=== PATIENT | female | born 1945 | race Caucasian/White ===

== ENCOUNTER → 2016-11-19 | Day surgery (SDC) | payer MEDICARE, OTHER ==
[~2016-11-19] VITALS: Ht 162.5 cm; Wt 111.1 kg
[~2016-11-19] MED LIST: ALPRAZOLAM0.5 M3 PO; ATENOLOL25 MG PO; CYCLOBENZAPRINE5 M3 PO; DESLORATADINE PO; GOOD NEIGHBOR150 MG PO; GORDO-VITE E15 GM PO; LEVOTHYROXINE125 MCG PO; MIRTAZAPINE15 M2 PO; NEURONTIN300 MG PO; TRAMADOL HCL50 MG PO; TRIAMTERENE-HC1 EACH PO
--- NOTE | ~2016-11-19 | O ---
[place], [place] OPERATIVE NOTE NAME: CHANDU HERR [facility] #: [id number] UNIT #: [id number] ROOM: DOCTOR: MIGUEL LAI MD BIRTHDATE: [birth year] DOS: 11/19/2016 PREOPERATIVE DIAGNOSIS: Cataract, left eye. POSTOPERATIVE DIAGNOSIS: Cataract, left eye. OPERATION: Extracapsular cataract extraction by phacoemulsification with posterior chamber intraocular lens implantation, left eye. ANESTHESIA: Monitored standby. OPERATIVE FINDINGS AND PROCEDURE: 2% Xylocaine topical anesthetic gel was applied to the eye in the preop area. The patient was taken to the operating room and prepped and draped in the standard fashion for sterile intraocular surgery. A time out procedure was performed verifying correct patient, correct site and corrects lens with Victor M Lai M.D. The operating microscope was swung into position and the lid speculum was inserted. Using a Luci paracentesis blade, a paracentesis was made through clear cornea. Viscoelastic was used to fill the anterior chamber. Using a metal keratome a 2.4 mm self-sealing clear corneal cataract incision was made temporally at the limbus. Using a pre-bent 25 gauge cystotome needle, a standard continuous curvilinear capsulorrhexis was performed. The anterior capsule was removed with forceps. The lens nucleus was hydrodissected and phacoemulsified in the posterior chamber. Cortical material was removed with the irrigation aspiration hand piece and the posterior capsule was then polished with a curet under irrigation. The posterior chamber and capsular bag were filled with viscoelastic. A posterior chamber intraocular lens manufactured by: [employer], Model #[id number], and 20.5 diopters in strength were then inserted into the posterior chamber and within the capsular bag using the lens cartridge and injector system. Viscoelastic was removed using the irrigation aspiration handpiece. The anterior chamber was filled with balanced salt solution through the paracentesis. Both the paracentesis site and cataract incisions were hydrated with BSS and verified to be water-tight and self-sealing. Cefuroxime 1 mg/0.1 mL was injected into the anterior chamber through the paracentesis site. The incision checked to be water-tight using a Weck-Monica sponge. The integrity of the cataract wound and ocular tension were checked. Lid speculum and drapes were removed. The patient was transferred from the operating room to the recovery room in satisfactory condition. [place], [place] OPERATIVE NOTE NAME: CHANDU HERR UNIT #: [id number] ROOM: DOCTOR: MIGUEL LAI MD BIRTHDATE: [birth year] MIGUEL LAI MD CM:OPRECORD:OPERATIVE NOTE [id number] MIGUEL LAI MD 11/19/16 1313 interface
[2016-11-19 11:15] VITALS: BP 136/79
[2016-11-19 12:53] VITALS: BP 118/56
[2016-11-19 13:08] VITALS: BP 115/52
[2016-11-19 13:23] VITALS: BP 128/62
== END | disposition home or self-care (01) ==
LOC: SDC 11-14 12:30
DX: H26.9 Unspecified cataract (principal); I10 Essential (primary) hypertension; E03.9 Hypothyroidism, unspecified; F32.9 Major depressive disorder, single episode, unspecified; Z90.710 Acquired absence of both cervix and uterus; Z98.890 Other specified postprocedural states; Z87.891 Personal history of nicotine dependence; Z79.899 Other long term (current) drug therapy; Z88.1 Allergy status to other antibiotic agents; M19.90 Unspecified osteoarthritis, unspecified site; E66.01 Morbid (severe) obesity due to excess calories; Z68.41 Body mass index [BMI] 40.0-44.9, adult

== ENCOUNTER → 2016-12-24 | Day surgery (SDC) | payer MEDICARE, OTHER ==
[~2016-12-24] VITALS: Ht 162.5 cm; Wt 111.1 kg
[~2016-12-24] MED LIST changes: +FISH OIL CONC1000 M2 PO; +MULTIPLE VITAM1 EACH PO; +VITAMIN C500 M4 PO; +VITAMIN D31000 UNI1 PO; +VITAMIN E400 UNI3 PO
--- NOTE | ~2016-12-24 | O ---
[place], [place] OPERATIVE NOTE [id number] UN[facility] #: [id number] ROOM: DOCTOR: MIGUEL LAI MD BIRTHDATE: [birth year] DOS: 12/24/2016 PREOPERATIVE DIAGNOSIS: Cataract, right eye. POSTOPERATIVE DIAGNOSIS: Cataract, right eye. OPERATION: Extracapsular cataract extraction by phacoemulsification with posterior chamber intraocular lens implantation, right eye. ANESTHESIA: Monitored standby. OPERATIVE FINDINGS AND PROCEDURE: 2% Xylocaine topical anesthetic gel was applied to the eye in the preop area. The patient was taken to the operating room and prepped and draped in the standard fashion for sterile intraocular surgery. A time out procedure was performed verifying correct patient, correct site and corrects lens with Victor M Lai M.D. The operating microscope was swung into position and the lid speculum was inserted. Using a Luci paracentesis blade, a paracentesis was made through clear cornea. Viscoelastic was used to fill the anterior chamber. Using a metal keratome a 2.4 mm self-sealing clear corneal cataract incision was made temporally at the limbus. Using a pre-bent 25 gauge cystotome needle, a standard continuous curvilinear capsulorrhexis was performed. The anterior capsule was removed with forceps. The lens nucleus was hydrodissected and phacoemulsified in the posterior chamber. Cortical material was removed with the irrigation aspiration hand piece and the posterior capsule was then polished with a curet under irrigation. The posterior chamber and capsular bag were filled with viscoelastic. A posterior chamber intraocular lens manufactured by: [employer], Model #[id number], and 20.0 diopters in strength were then inserted into the posterior chamber and within the capsular bag using the lens cartridge and injector system. Viscoelastic was removed using the irrigation aspiration handpiece. The anterior chamber was filled with balanced salt solution through the paracentesis. Both the paracentesis site and cataract incisions were hydrated with BSS and verified to be water-tight and self-sealing. Cefuroxime 1 mg/0.1 mL was injected into the anterior chamber through the paracentesis site. The incision checked to be water-tight using a Weck-Monica sponge. The integrity of the cataract wound and ocular tension were checked. Lid speculum and drapes were removed. The patient was transferred from the operating room to the recovery room in satisfactory condition. [place], [place] OPERATIVE NOTE NAME: CHANDU HERR UNIT #: [id number] ROOM: DOCTOR: MIGEUL LAI MD BIRTHDATE: [birth year] MIGUEL LAI MD CM:OPRECORD:OPERATIVE NOTE [id number] MIGUEL LAI MD 12/24/16 1449 interface
[2016-12-24 09:51] VITALS: BP 136/60
[2016-12-24 11:08] VITALS: BP 121/57
[2016-12-24 11:25] VITALS: BP 129/56
[2016-12-24 11:39] VITALS: BP 132/59
== END | disposition home or self-care (01) ==
LOC: SDC 12-19 12:30
DX: H26.9 Unspecified cataract (principal); I10 Essential (primary) hypertension; E03.9 Hypothyroidism, unspecified; F32.9 Major depressive disorder, single episode, unspecified; Z90.710 Acquired absence of both cervix and uterus; Z87.891 Personal history of nicotine dependence; Z88.1 Allergy status to other antibiotic agents

== ENCOUNTER 2018-11-08 15:31 | Emergency (ER) | payer MEDICARE, OTHER ==
[~2018-11-08] VITALS: Wt 113.4 kg
--- NOTE | ~2018-11-08 | EKG ---
[place], [place] ELECTROCARDIOGRAM REPORT NAME: CHANDU HERR UNIT #: [id number] ROOM: DOCTOR: MERLYN DRAFT REPORT BIRTHDATE: [birth year] [facility] Test Date: 2018-11-08 Test Time: 16:17:13 Pat Name: CHANDU HERR Department: Room: Gender: F Medical Orderly: Luda Luna : 1945 Requested By: JAMES STONE Order Number: [id number] Reading MD: Pankaj Wilson MD Measurements Intervals [place] Rate: 66 P: -2 WV: 146 QRS: 67 QRSD: 113 T: 44 QT: 453 QTc: 475 Interpretive Statements Sinus rhythm Borderline intraventricular conduction delay Low voltage, precordial leads No previous ECG available for comparison Electronically Signed On 11-10-2018 4:09:39 PDT by Pankaj Wilson MD CM:EKGRPT:ELECTROCARDIOGRAM REPORT [id number] JAMES VALLEJO DRAFT REPORT JAMES STONE DO
[2018-11-08 16:29] LABS: BASO # 0.1 10*3/uL (0.0-0.1); BASO % 0.5 % (0.0-1.0); EOS # 0.2 10*3/uL (0.0-0.4); EOS % 0.9 % (1.0-4.0); HEMATOCRIT 43.5 % (37.0-47.0); LYMPH # 1.5 10*3/uL (1.3-4.4); LYMPH % 9.2 % (27.0-41.0); MEAN CELL VOLUME 94.2 fl (81.0-99.0); MEAN CORPUSCULAR HGB 30.3 pg (27.0-31.0); MEAN CORPUSCULAR HGB CONC 32.2 g/dl (33.0-37.0); MEAN PLATELET VOLUME 9.9 fl (9.6-12.3); MONO % 6.2 % (3.0-9.0); NEUT # 13.7 10*3/uL (2.3-7.9); NEUT % 82.8 % (47.0-73.0); PLATELET COUNT AUTOMATED 311 10*3/uL (130-400); RED BLOOD COUNT 4.62 10*6/uL (4.10-5.10); RED CELL DISTRI WIDTH 12.9 % (0-14.5); WHITE BLOOD COUNT 16.5 10*3/uL (4.8-10.8)
[2018-11-08 16:45] LABS: ALBUMIN 3.8 gm/dl (3.1-4.5); ALKALINE PHOSPHATASE 54 U/L (45-117); BUN 25 mg/dl (7-24); CHLORIDE 109 mmol/L (98-107); CPK 321 U/L (26-192); CREATININE 1.31 mg/dL (0.55-1.02); LIPASE 64 U/L (73-393); SGOT/AST 17 IU/L (3-35); SGPT/ALT 19 U/L (12-78); SODIUM 141 mmol/L (136-145); TOTAL PROTEIN 6.9 gm/dL (6.4-8.2); TROPONIN I < 0.015 ng/ml (<0.045)
[2018-11-08 16:46] LABS: ACT PARTIAL THROMBO TIME 25.2 SECONDS (20.0-32.1)
== END 2018-11-08 19:43 | disposition short-term general hospital (02) ==
LOC: ED 15:31
PROVIDERS: Emergency Medicine
DX: I63.9 Cerebral infarction, unspecified (principal); Z88.2 Allergy status to sulfonamides; Z79.899 Other long term (current) drug therapy

== ENCOUNTER 2019-08-09 12:39 | Inpatient (IN) | payer MEDICARE, OTHER ==
[~2019-08-09] VITALS: Ht 162.5 cm; Wt 118.0 kg
[2019-08-09] VITALS (38 sets, daily range): BP systolic 56–128; BP diastolic 0–98
[2019-08-09 13:02] LABS: HEMATOCRIT 40.9 % (37.0-47.0); MEAN CELL VOLUME 93.8 fl (81.0-99.0); MEAN CORPUSCULAR HGB 30.5 pg (27.0-31.0); MEAN CORPUSCULAR HGB CONC 32.5 g/dl (33.0-37.0); MEAN PLATELET VOLUME 11.2 fl (9.6-12.3); PLATELET COUNT AUTOMATED 191 10*3/uL (130-400); RED BLOOD COUNT 4.36 10*6/uL (4.10-5.10); WHITE BLOOD COUNT 36.3 10*3/uL (4.8-10.8)
[2019-08-09 13:23] LABS: TOTAL CELLS COUNTED 100 #CELLS
[2019-08-09 13:24] LABS: PLATELET SUFFICIENCY NORMAL (NORMAL)
[2019-08-09 13:49] LABS: ACT PARTIAL THROMBO TIME 32.4 SECONDS (20.0-32.1); INTERNATIONAL NORM RATIO 1.4 (2.0-3.5)
[2019-08-09 13:57] LABS: ALBUMIN 2.8 gm/dl (3.1-4.5); ALKALINE PHOSPHATASE 45 U/L (45-117); BUN 46 mg/dl (7-24); CHLORIDE 111 mmol/L (98-107); CREATININE 4.42 mg/dL (0.55-1.02); POTASSIUM 4.2 mmol/L (3.5-5.1); SGOT/AST 75 IU/L (3-35); SGPT/ALT 25 U/L (12-78); SODIUM 143 mmol/L (136-145); TOTAL PROTEIN 5.9 gm/dL (6.4-8.2)
[2019-08-09 13:59] LABS: TROPONIN I < 0.015 ng/ml (<0.045)
[2019-08-09 14:20] LABS: BILIRUBIN NEGATIVE (NEGATIVE); BLOOD 3+ (NEGATIVE); CLARITY SL CLOUDY (CLEAR); COLOR YELLOW (YELLOW); GLUCOSE NEGATIVE (NEGATIVE); KETONE NEGATIVE (NEGATIVE); LEUKO ESTERASE 3+ (NEGATIVE); NITRITE NEGATIVE (NEGATIVE); SPECIFIC GRAVITY 1.015 (1.005-1.030); UROBILINOGEN 0.2 E.U./dl (0.2-1.0)
[2019-08-09 14:25] LABS: RBC 51-100 rbc/hpf (0-2); WBC TNTC wbc/hpf (0-5)
[2019-08-09 14:26] LABS: BACTERIA 4+
[2019-08-09 15:08] LABS: LDH 371 U/L (84-246); LIPASE 17 U/L (73-393)
[2019-08-10] VITALS (95 sets, daily range): BP systolic 60–146; BP diastolic 31–102
[2019-08-10 04:32] LABS: HEMATOCRIT 40.3 % (37.0-47.0); MEAN CELL VOLUME 93.3 fl (81.0-99.0); MEAN CORPUSCULAR HGB 30.3 pg (27.0-31.0); MEAN CORPUSCULAR HGB CONC 32.5 g/dl (33.0-37.0); MEAN PLATELET VOLUME 10.6 fl (9.6-12.3); PLATELET COUNT AUTOMATED 145 10*3/uL (130-400); RED BLOOD COUNT 4.32 10*6/uL (4.10-5.10); RED CELL DISTRI WIDTH 13.9 % (0-14.5)
[2019-08-10 04:42] LABS: ACT PARTIAL THROMBO TIME 36.9 SECONDS (20.0-32.1); INTERNATIONAL NORM RATIO 1.4 (2.0-3.5)
[2019-08-10 04:58] LABS: BURR CELLS MODERATE; TOTAL CELLS COUNTED 100 #CELLS
[2019-08-10 04:59] LABS: PLATELET SUFFICIENCY NORMAL (NORMAL)
[2019-08-10 05:04] LABS: ALBUMIN 2.4 gm/dl (3.1-4.5); CREATININE 4.13 mg/dL (0.55-1.02); POTASSIUM 4.7 mmol/L (3.5-5.1); TOTAL PROTEIN 5.7 gm/dL (6.4-8.2)
[2019-08-10 05:09] LABS: THYROID STIM HORMONE (HS) 0.119 uIU/ml (0.358-4.75)
[2019-08-10 08:04] LABS: VITAMIN D, 25-HYDROXY 9.9 ng/mL (30-100)
[2019-08-10] MEDS ORDERED: PROAIR HFA8.5 GM INH (19:57)
[2019-08-10] MEDS ORDERED: ASPIRIN FOR CHI81 MG PO (19:57)
[2019-08-10] MEDS ORDERED: Clopidogrel75 MG PO (19:58)
[2019-08-11] VITALS (76 sets, daily range): BP systolic 77–143; BP diastolic 37–76
[2019-08-11 06:18] LABS: HEMATOCRIT 35.8 % (37.0-47.0); MEAN CORPUSCULAR HGB 30.2 pg (27.0-31.0); MEAN CORPUSCULAR HGB CONC 32.1 g/dl (33.0-37.0); MEAN PLATELET VOLUME 11.3 fl (9.6-12.3); PLATELET COUNT AUTOMATED 123 10*3/uL (130-400); RED BLOOD COUNT 3.81 10*6/uL (4.10-5.10); RED CELL DISTRI WIDTH 14.5 % (0-14.5); WHITE BLOOD COUNT 18.9 10*3/uL (4.8-10.8)
[2019-08-11 06:34] LABS: CREATININE 4.03 mg/dL (0.55-1.02); POTASSIUM 4.4 mmol/L (3.5-5.1); TOTAL PROTEIN 5.4 gm/dL (6.4-8.2)
[2019-08-11 07:29] LABS: TOTAL CELLS COUNTED 100 #CELLS
[2019-08-11 07:30] LABS: BURR CELLS MODERATE; PLATELET SUFFICIENCY LOW (NORMAL)
[2019-08-11 07:31] LABS: TOXIC GRANULATION SLIGHT
[2019-08-12] VITALS: BP 122/65
[2019-08-12 04:00] VITALS: BP 117/53
[2019-08-12 06:11] LABS: ALBUMIN 1.8 gm/dl (3.1-4.5); CREATININE 3.66 mg/dL (0.55-1.02); POTASSIUM 4.3 mmol/L (3.5-5.1); TOTAL PROTEIN 5.5 gm/dL (6.4-8.2)
[2019-08-12 06:14] LABS: BASO # 0.1 10*3/uL (0.0-0.1); BASO % 0.4 % (0.0-1.0); EOS # 0.8 10*3/uL (0.0-0.4); EOS % 4.9 % (1.0-4.0); HEMATOCRIT 34.3 % (37.0-47.0); LYMPH # 1.5 10*3/uL (1.3-4.4); LYMPH % 9.6 % (27.0-41.0); MEAN CORPUSCULAR HGB 29.7 pg (27.0-31.0); MEAN CORPUSCULAR HGB CONC 32.7 g/dl (33.0-37.0); MEAN PLATELET VOLUME 11.5 fl (9.6-12.3); MONO # 1.4 10*3/uL (0.1-1.0); MONO % 8.9 % (3.0-9.0); NEUT # 11.9 10*3/uL (2.3-7.9); NEUT % 74.9 % (47.0-73.0); PLATELET COUNT AUTOMATED 113 10*3/uL (130-400); RED BLOOD COUNT 3.77 10*6/uL (4.10-5.10); RED CELL DISTRI WIDTH 14.2 % (0-14.5); WHITE BLOOD COUNT 15.8 10*3/uL (4.8-10.8)
[2019-08-12 08:00] VITALS: BP 114/54
[2019-08-12] MEDS ORDERED: TAMSULOSIN HCL0.4 MG PO (10:28)
[2019-08-12] MEDS ORDERED: SYNTHROID,LEV112 MCG PO (10:28)
[2019-08-12] MEDS ORDERED: CEFTRIAXONE1 GM IV (10:28)
[2019-08-12] MEDS ORDERED: HEPARIN IV (10:28)
[2019-08-12 12:00] VITALS: BP 116/72
== END 2019-08-12 12:30 | disposition short-term general hospital (02) | DRG 871 ==
LOC: ED 12:39 → EDHOLD 16:00 → ICCU 16:00
PROVIDERS: Emergency Medicine; Family Medicine; Student in an Organized Health Care Education/Training Program; ADMIT Internal Medicine
PROC: B54BZZA Ultrasonography of Right Lower Extremity Veins, Guidance (ICD-10-PCS; principal; 2019-08-09)
PROC: 06HM33Z Insertion of Infusion Device into Right Femoral Vein, Percutaneous Approach (ICD-10-PCS; principal; 2019-08-09)
DX: A41.50 Gram-negative sepsis, unspecified (principal); N17.0 Acute kidney failure with tubular necrosis; E43 Unspecified severe protein-calorie malnutrition; R65.21 Severe sepsis with septic shock; J96.20 Acute and chronic respiratory failure, unspecified whether with hypoxia or hypercapnia; M62.82 Rhabdomyolysis; N30.01 Acute cystitis with hematuria; E87.2 Acidosis; N13.2 Hydronephrosis with renal and ureteral calculous obstruction; Q21.1 Atrial septal defect; Z68.41 Body mass index [BMI] 40.0-44.9, adult; I48.91 Unspecified atrial fibrillation; E86.1 Hypovolemia; E87.8 Other disorders of electrolyte and fluid balance, not elsewhere classified; E03.9 Hypothyroidism, unspecified; F41.9 Anxiety disorder, unspecified; F32.9 Major depressive disorder, single episode, unspecified; B96.20 Unspecified Escherichia coli [E. coli] as the cause of diseases classified elsewhere; I12.9 Hypertensive chronic kidney disease with stage 1 through stage 4 chronic kidney disease, or unspecified chronic kidney disease; N18.9 Chronic kidney disease, unspecified; D64.9 Anemia, unspecified; E66.9 Obesity, unspecified; S92.411A Displaced fracture of proximal phalanx of right great toe, initial encounter for closed fracture; W19.XXXA Unspecified fall, initial encounter; Y93.89 Activity, other specified; Y92.89 Other specified places as the place of occurrence of the external cause; Y99.8 Other external cause status; Z87.891 Personal history of nicotine dependence; Z82.3 Family history of stroke; Z82.0 Family history of epilepsy and other diseases of the nervous system; Z79.82 Long term (current) use of aspirin; Z79.899 Other long term (current) drug therapy; Z86.73 Personal history of transient ischemic attack (TIA), and cerebral infarction without residual deficits; Z88.2 Allergy status to sulfonamides

== ENCOUNTER 2021-09-10 12:32 | Inpatient (IN) | payer MEDICARE, OTHER ==
[~2021-09-10] VITALS: Ht 162.5 cm; Wt 96.6 kg
[2021-09-10] VITALS (8 sets, daily range): BP systolic 57–101; BP diastolic 34–54
[~2021-09-10 12:32] MED LIST changes: +ASPIRIN FOR CHI81 MG PO; +AZO CRANBERRY PO; +CEFTRIAXONE1 GM IV; +Clopidogrel75 MG PO; +HEPARIN IV; +METOPROLOL TART50 M1 PO; +NAPROXEN500 MG PO; +PROAIR HFA8.5 GM INH; +SYNTHROID,LEV112 MCG PO; +SYNTHROID,LEV125 MCG PO; +Synthroid,Lev100 MCG PO; +TAMSULOSIN HCL0.4 MG PO; +TENORMIN25 M1 PO; +VANCOCIN125 M1 PO; +XARE15TA PO
[2021-09-10 13:18] LABS: BASO % 0.2 % (0.0-1.0); EOS % 0.2 % (1.0-4.0); HEMATOCRIT 30.7 % (37.0-47.0); LYMPH # 2.4 10*3/uL (1.3-4.4); LYMPH % 18.3 % (27.0-41.0); MEAN CELL VOLUME 89.2 fl (81.0-99.0); MEAN CORPUSCULAR HGB 27.9 pg (27.0-31.0); MEAN CORPUSCULAR HGB CONC 31.3 g/dl (33.0-37.0); MEAN PLATELET VOLUME 8.9 fl (9.6-12.3); MONO # 1.2 10*3/uL (0.1-1.0); MONO % 9.1 % (3.0-9.0); NEUT # 9.2 10*3/uL (2.3-7.9); NEUT % 71.8 % (47.0-73.0); PLATELET COUNT AUTOMATED 509 10*3/uL (130-400); RED BLOOD COUNT 3.44 10*6/uL (4.10-5.10); RED CELL DISTRI WIDTH 17.8 % (0-14.5); WHITE BLOOD COUNT 12.8 10*3/uL (4.8-10.8)
[2021-09-10 13:34] LABS: ACT PARTIAL THROMBO TIME 52.4 SECONDS (20.0-32.1); INTERNATIONAL NORM RATIO 1.8 (2.0-3.5)
[2021-09-10 13:38] LABS: CREATININE 3.11 mg/dL (0.55-1.02); POTASSIUM 3.9 mmol/L (3.5-5.1); TOTAL PROTEIN 4.2 gm/dL (6.4-8.2)
[2021-09-10 14:25] LABS: BILIRUBIN Negative (Negative); BLOOD 2+ (Negative); CLARITY Turbid (Clear); COLOR Orange (Yellow); GLUCOSE Negative (Negative); KETONE Trace (Negative); LEUKO ESTERASE 2+ (Negative); NITRITE Positive (Negative); SPECIFIC GRAVITY 1.015 (1.001-1.030); UROBILINOGEN 0.2 E.U./dl (0.0-1.0)
[2021-09-10 14:33] LABS: BACTERIA 4+
[2021-09-10 14:36] LABS: WBC TNTC wbc/hpf (0-5)
[2021-09-10] MEDS ORDERED: VAZALORE81 MG PO (17:21)
[2021-09-10] MEDS ORDERED: CYCLOBENZAPRINE10 MG PO (17:23)
[2021-09-10] MEDS ORDERED: CLARINEX5 MG PO (17:24)
[2021-09-10] MEDS ORDERED: ZOFRAN4 MG PO (19:25)
[2021-09-11] VITALS (84 sets, daily range): BP systolic 58–204; BP diastolic 40–174
[2021-09-11 04:33] LABS: BASO % 0.1 % (0.0-1.0); EOS # 0.1 10*3/uL (0.0-0.4); EOS % 0.4 % (1.0-4.0); HEMATOCRIT 30.8 % (37.0-47.0); LYMPH # 2.6 10*3/uL (1.3-4.4); LYMPH % 18.3 % (27.0-41.0); MEAN CORPUSCULAR HGB 27.7 pg (27.0-31.0); MEAN CORPUSCULAR HGB CONC 31.2 g/dl (33.0-37.0); MEAN PLATELET VOLUME 8.6 fl (9.6-12.3); MONO % 7.3 % (3.0-9.0); NEUT # 10.2 10*3/uL (2.3-7.9); NEUT % 73.5 % (47.0-73.0); PLATELET COUNT AUTOMATED 492 10*3/uL (130-400); RED BLOOD COUNT 3.46 10*6/uL (4.10-5.10); RED CELL DISTRI WIDTH 17.8 % (0-14.5); WHITE BLOOD COUNT 13.9 10*3/uL (4.8-10.8)
[2021-09-11 05:10] LABS: CREATININE 2.62 mg/dL (0.55-1.02); POTASSIUM 3.7 mmol/L (3.5-5.1); TOTAL PROTEIN 4.1 gm/dL (6.4-8.2)
[2021-09-11 05:11] LABS: FREE T4 0.98 ng/dl (0.76-1.46)
[2021-09-11 05:16] LABS: THYROID STIM HORMONE (HS) 2.57 uIU/ml (0.358-4.75)
[2021-09-11 07:41] LABS: VITAMIN D, 25-HYDROXY 19.4 ng/mL (30-100)
[2021-09-12] VITALS (10 sets, daily range): BP systolic 97–128; BP diastolic 46–68
[2021-09-12 05:04] LABS: CREATININE 2.42 mg/dL (0.55-1.02); POTASSIUM 3.4 mmol/L (3.5-5.1); TOTAL PROTEIN 3.4 gm/dL (6.4-8.2)
[2021-09-12 06:14] LABS: BASO % 0.1 % (0.0-1.0); EOS # 0.2 10*3/uL (0.0-0.4); EOS % 2.3 % (1.0-4.0); HEMATOCRIT 25.9 % (37.0-47.0); LYMPH # 1.7 10*3/uL (1.3-4.4); LYMPH % 23.9 % (27.0-41.0); MEAN CORPUSCULAR HGB 27.8 pg (27.0-31.0); MEAN CORPUSCULAR HGB CONC 31.3 g/dl (33.0-37.0); MEAN PLATELET VOLUME 8.9 fl (9.6-12.3); MONO # 0.8 10*3/uL (0.1-1.0); MONO % 11.4 % (3.0-9.0); NEUT # 4.5 10*3/uL (2.3-7.9); NEUT % 61.9 % (47.0-73.0); PLATELET COUNT AUTOMATED 373 10*3/uL (130-400); RED BLOOD COUNT 2.91 10*6/uL (4.10-5.10); WHITE BLOOD COUNT 7.3 10*3/uL (4.8-10.8)
[2021-09-13 04:02] VITALS: BP 99/66
[2021-09-13 05:10] LABS: CREATININE 2.31 mg/dL (0.55-1.02); POTASSIUM 3.7 mmol/L (3.5-5.1)
[2021-09-13 06:12] LABS: BASO % 0.1 % (0.0-1.0); EOS # 0.1 10*3/uL (0.0-0.4); EOS % 0.8 % (1.0-4.0); HEMATOCRIT 28.1 % (37.0-47.0); LYMPH # 0.8 10*3/uL (1.3-4.4); MEAN CELL VOLUME 90.6 fl (81.0-99.0); MEAN CORPUSCULAR HGB 28.1 pg (27.0-31.0); MEAN PLATELET VOLUME 9.2 fl (9.6-12.3); MONO # 0.5 10*3/uL (0.1-1.0); MONO % 5.8 % (3.0-9.0); NEUT # 6.5 10*3/uL (2.3-7.9); NEUT % 82.7 % (47.0-73.0); PLATELET COUNT AUTOMATED 357 10*3/uL (130-400); RED CELL DISTRI WIDTH 18.2 % (0-14.5); WHITE BLOOD COUNT 7.8 10*3/uL (4.8-10.8)
[2021-09-13 08:00] VITALS: BP 116/50
[2021-09-13 12:00] VITALS: BP 101/53
[2021-09-13 16:00] VITALS: BP 103/49
[2021-09-13] MEDS ORDERED: CEFTRIAXONE2 GM IJ (17:31)
[2021-09-13 20:00] VITALS: BP 94/48
[2021-09-13 23:45] VITALS: BP 86/42
[2021-09-14] VITALS (62 sets, daily range): BP systolic 83–161; BP diastolic 35–90
[2021-09-14 03:03] LABS: BASO # 0.1 10*3/uL (0.0-0.1); BASO % 0.4 % (0.0-1.0); EOS # 0.2 10*3/uL (0.0-0.4); EOS % 1.3 % (1.0-4.0); HEMATOCRIT 32.9 % (37.0-47.0); LYMPH # 1.1 10*3/uL (1.3-4.4); LYMPH % 9.7 % (27.0-41.0); MEAN CELL VOLUME 89.2 fl (81.0-99.0); MEAN CORPUSCULAR HGB 27.9 pg (27.0-31.0); MEAN CORPUSCULAR HGB CONC 31.3 g/dl (33.0-37.0); MEAN PLATELET VOLUME 8.3 fl (9.6-12.3); MONO # 0.7 10*3/uL (0.1-1.0); MONO % 6.3 % (3.0-9.0); NEUT # 9.2 10*3/uL (2.3-7.9); NEUT % 81.9 % (47.0-73.0); PLATELET COUNT AUTOMATED 422 10*3/uL (130-400); RED BLOOD COUNT 3.69 10*6/uL (4.10-5.10); RED CELL DISTRI WIDTH 18.3 % (0-14.5); WHITE BLOOD COUNT 11.2 10*3/uL (4.8-10.8)
[2021-09-14 03:20] LABS: CREATININE 2.19 mg/dL (0.55-1.02); POTASSIUM 3.7 mmol/L (3.5-5.1)
[2021-09-15] VITALS (7 sets, daily range): BP systolic 119–153; BP diastolic 44–66
[2021-09-15 06:01] LABS: CREATININE 2.05 mg/dL (0.55-1.02); POTASSIUM 3.9 mmol/L (3.5-5.1); TOTAL PROTEIN 3.3 gm/dL (6.4-8.2)
[2021-09-15 06:34] LABS: BASO % 0.5 % (0.0-1.0); EOS # 0.2 10*3/uL (0.0-0.4); EOS % 3.2 % (1.0-4.0); HEMATOCRIT 26.2 % (37.0-47.0); LYMPH # 1.7 10*3/uL (1.3-4.4); MEAN CELL VOLUME 91.3 fl (81.0-99.0); MEAN CORPUSCULAR HGB 27.2 pg (27.0-31.0); MEAN CORPUSCULAR HGB CONC 29.8 g/dl (33.0-37.0); MEAN PLATELET VOLUME 8.7 fl (9.6-12.3); MONO % 15.1 % (3.0-9.0); NEUT # 3.4 10*3/uL (2.3-7.9); NEUT % 53.7 % (47.0-73.0); PLATELET COUNT AUTOMATED 306 10*3/uL (130-400); RED BLOOD COUNT 2.87 10*6/uL (4.10-5.10); RED CELL DISTRI WIDTH 18.1 % (0-14.5); WHITE BLOOD COUNT 6.3 10*3/uL (4.8-10.8)
[2021-09-15 12:26] LABS: ACT PARTIAL THROMBO TIME 47.5 SECONDS (20.0-32.1); INTERNATIONAL NORM RATIO 1.4 (2.0-3.5)
[2021-09-16] VITALS: BP 135/48
[2021-09-16 04:00] VITALS: BP 153/61
[2021-09-16 04:59] LABS: CREATININE 2.01 mg/dL (0.55-1.02); POTASSIUM 3.6 mmol/L (3.5-5.1); TOTAL PROTEIN 3.4 gm/dL (6.4-8.2)
[2021-09-16 06:09] LABS: BASO # 0.1 10*3/uL (0.0-0.1); BASO % 0.7 % (0.0-1.0); EOS # 0.1 10*3/uL (0.0-0.4); EOS % 1.9 % (1.0-4.0); LYMPH # 1.6 10*3/uL (1.3-4.4); LYMPH % 24.4 % (27.0-41.0); MEAN CELL VOLUME 88.9 fl (81.0-99.0); MEAN CORPUSCULAR HGB 27.4 pg (27.0-31.0); MEAN CORPUSCULAR HGB CONC 30.8 g/dl (33.0-37.0); MONO # 0.8 10*3/uL (0.1-1.0); MONO % 11.6 % (3.0-9.0); NEUT # 4.1 10*3/uL (2.3-7.9); PLATELET COUNT AUTOMATED 299 10*3/uL (130-400); RED CELL DISTRI WIDTH 17.9 % (0-14.5); WHITE BLOOD COUNT 6.7 10*3/uL (4.8-10.8)
[2021-09-16 08:00] VITALS: BP 141/69
[2021-09-16 12:00] VITALS: BP 144/67
[2021-09-16 16:00] VITALS: BP 125/56
[2021-09-16 16:24] LABS: BASO # 0.1 10*3/uL (0.0-0.1); BASO % 0.7 % (0.0-1.0); EOS # 0.1 10*3/uL (0.0-0.4); EOS % 1.3 % (1.0-4.0); LYMPH # 2.7 10*3/uL (1.3-4.4); LYMPH % 38.3 % (27.0-41.0); MEAN CELL VOLUME 91.6 fl (81.0-99.0); MEAN CORPUSCULAR HGB 27.9 pg (27.0-31.0); MEAN CORPUSCULAR HGB CONC 30.4 g/dl (33.0-37.0); MEAN PLATELET VOLUME 8.6 fl (9.6-12.3); MONO # 0.6 10*3/uL (0.1-1.0); MONO % 8.3 % (3.0-9.0); NEUT # 3.6 10*3/uL (2.3-7.9); PLATELET COUNT AUTOMATED 285 10*3/uL (130-400); RED BLOOD COUNT 2.62 10*6/uL (4.10-5.10); RED CELL DISTRI WIDTH 17.7 % (0-14.5)
[2021-09-16 20:00] VITALS: BP 126/53
[2021-09-17] VITALS (18 sets, daily range): BP systolic 84–126; BP diastolic 29–68
[2021-09-17 05:30] LABS: CREATININE 2.05 mg/dL (0.55-1.02); POTASSIUM 3.3 mmol/L (3.5-5.1); TOTAL PROTEIN 3.1 gm/dL (6.4-8.2)
[2021-09-17 06:31] LABS: MEAN CELL VOLUME 90.5 fl (81.0-99.0); MEAN CORPUSCULAR HGB 27.9 pg (27.0-31.0); MEAN CORPUSCULAR HGB CONC 30.8 g/dl (33.0-37.0); MEAN PLATELET VOLUME 9.2 fl (9.6-12.3); PLATELET COUNT AUTOMATED 246 10*3/uL (130-400); RED BLOOD COUNT 2.22 10*6/uL (4.10-5.10); RED CELL DISTRI WIDTH 17.7 % (0-14.5); WHITE BLOOD COUNT 5.9 10*3/uL (4.8-10.8)
[2021-09-17 06:33] LABS: MANUAL DIFF REFLEX YES
[2021-09-17 06:36] LABS: HEMATOCRIT 20.1 % (37.0-47.0)
[2021-09-17 07:18] LABS: BASOPHILS 3 % (0-1); OVALOCYTES FEW; PLATELET SUFFICIENCY NORMAL (NORMAL); POLYCHROMASIA SLIGHT; ROULEAUX SLIGHT; TOTAL CELLS COUNTED 100 #CELLS
[2021-09-17 07:19] LABS: TARGET CELLS FEW
[2021-09-17 12:22] LABS: BASO # 0.1 10*3/uL (0.0-0.1); BASO % 1.1 % (0.0-1.0); EOS # 0.4 10*3/uL (0.0-0.4); EOS % 5.6 % (1.0-4.0); HEMATOCRIT 25.1 % (37.0-47.0); LYMPH # 2.7 10*3/uL (1.3-4.4); LYMPH % 42.3 % (27.0-41.0); MEAN CELL VOLUME 89.6 fl (81.0-99.0); MEAN CORPUSCULAR HGB 27.9 pg (27.0-31.0); MEAN CORPUSCULAR HGB CONC 31.1 g/dl (33.0-37.0); MEAN PLATELET VOLUME 8.7 fl (9.6-12.3); MONO # 0.7 10*3/uL (0.1-1.0); MONO % 11.6 % (3.0-9.0); NEUT # 2.5 10*3/uL (2.3-7.9); NEUT % 39.2 % (47.0-73.0); PLATELET COUNT AUTOMATED 245 10*3/uL (130-400); RED CELL DISTRI WIDTH 17.2 % (0-14.5); WHITE BLOOD COUNT 6.3 10*3/uL (4.8-10.8)
[2021-09-17 12:33] LABS: ACT PARTIAL THROMBO TIME 34.2 SECONDS (20.0-32.1); INTERNATIONAL NORM RATIO 1.2 (2.0-3.5)
[2021-09-18] VITALS: BP 97/53
[2021-09-18 04:00] VITALS: BP 92/50; BP 99/37
[2021-09-18 04:17] LABS: BASO # 0.1 10*3/uL (0.0-0.1); EOS # 0.4 10*3/uL (0.0-0.4); LYMPH # 2.3 10*3/uL (1.3-4.4); LYMPH % 37.3 % (27.0-41.0); MEAN CELL VOLUME 88.1 fl (81.0-99.0); MEAN CORPUSCULAR HGB 28.1 pg (27.0-31.0); MEAN CORPUSCULAR HGB CONC 31.9 g/dl (33.0-37.0); MEAN PLATELET VOLUME 8.9 fl (9.6-12.3); MONO # 0.6 10*3/uL (0.1-1.0); MONO % 9.1 % (3.0-9.0); NEUT # 2.8 10*3/uL (2.3-7.9); NEUT % 45.3 % (47.0-73.0); PLATELET COUNT AUTOMATED 244 10*3/uL (130-400); RED BLOOD COUNT 2.95 10*6/uL (4.10-5.10); RED CELL DISTRI WIDTH 17.7 % (0-14.5); WHITE BLOOD COUNT 6.2 10*3/uL (4.8-10.8)
[2021-09-18 04:33] LABS: CREATININE 1.93 mg/dL (0.55-1.02); POTASSIUM 3.7 mmol/L (3.5-5.1); TOTAL PROTEIN 3.9 gm/dL (6.4-8.2)
[2021-09-18 08:00] VITALS: BP 111/58
[2021-09-18 12:00] VITALS: BP 100/60
[2021-09-18 16:00] VITALS: BP 138/61
[2021-09-18 20:00] VITALS: BP 117/46
[2021-09-19] VITALS: BP 111/50
[2021-09-19 06:06] LABS: BASO # 0.1 10*3/uL (0.0-0.1); BASO % 0.8 % (0.0-1.0); EOS # 0.3 10*3/uL (0.0-0.4); EOS % 5.4 % (1.0-4.0); HEMATOCRIT 23.7 % (37.0-47.0); LYMPH # 2.7 10*3/uL (1.3-4.4); MEAN CELL VOLUME 90.1 fl (81.0-99.0); MEAN CORPUSCULAR HGB 28.1 pg (27.0-31.0); MEAN CORPUSCULAR HGB CONC 31.2 g/dl (33.0-37.0); MEAN PLATELET VOLUME 9.2 fl (9.6-12.3); MONO # 0.6 10*3/uL (0.1-1.0); MONO % 8.8 % (3.0-9.0); NEUT # 2.6 10*3/uL (2.3-7.9); NEUT % 41.7 % (47.0-73.0); PLATELET COUNT AUTOMATED 225 10*3/uL (130-400); RED BLOOD COUNT 2.63 10*6/uL (4.10-5.10); RED CELL DISTRI WIDTH 17.5 % (0-14.5); WHITE BLOOD COUNT 6.3 10*3/uL (4.8-10.8)
[2021-09-19 06:09] LABS: CREATININE 1.9 mg/dL (0.55-1.02); POTASSIUM 3.4 mmol/L (3.5-5.1); TOTAL PROTEIN 3.4 gm/dL (6.4-8.2)
[2021-09-19 08:00] VITALS: BP 120/51
[2021-09-19 12:00] VITALS: BP 103/49
[2021-09-19 13:00] VITALS: BP 100/50
[2021-09-19 15:46] VITALS: BP 100/50
[2021-09-19 20:00] VITALS: BP 108/75
[2021-09-20] VITALS: BP 114/45
[2021-09-20 06:36] LABS: ALKALINE PHOSPHATASE 54 U/L (45-117); BUN 27 mg/dl (7-24); CHLORIDE 118 mmol/L (98-107); CREATININE 1.95 mg/dL (0.55-1.02); SGOT/AST 20 IU/L (3-35); SGPT/ALT 21 U/L (12-78); TOTAL PROTEIN 3.5 gm/dL (6.4-8.2)
[2021-09-20 06:42] LABS: SODIUM 142 mmol/L (136-145)
[2021-09-20 06:43] LABS: POTASSIUM 4.8 mmol/L (3.5-5.1)
[2021-09-20 08:00] VITALS: BP 124/60
[2021-09-20 08:21] LABS: BASO # 0.1 10*3/uL (0.0-0.1); BASO % 0.9 % (0.0-1.0); EOS # 0.3 10*3/uL (0.0-0.4); EOS % 4.2 % (1.0-4.0); HEMATOCRIT 24.7 % (37.0-47.0); LYMPH # 2.9 10*3/uL (1.3-4.4); LYMPH % 41.6 % (27.0-41.0); MEAN CELL VOLUME 89.5 fl (81.0-99.0); MEAN CORPUSCULAR HGB 27.9 pg (27.0-31.0); MEAN CORPUSCULAR HGB CONC 31.2 g/dl (33.0-37.0); MEAN PLATELET VOLUME 9.6 fl (9.6-12.3); MONO # 0.6 10*3/uL (0.1-1.0); MONO % 8.8 % (3.0-9.0); NEUT # 3.1 10*3/uL (2.3-7.9); NEUT % 44.2 % (47.0-73.0); PLATELET COUNT AUTOMATED 266 10*3/uL (130-400); RED BLOOD COUNT 2.76 10*6/uL (4.10-5.10); RED CELL DISTRI WIDTH 17.7 % (0-14.5); WHITE BLOOD COUNT 6.9 10*3/uL (4.8-10.8)
[2021-09-20 12:00] VITALS: BP 118/30
[2021-09-20] MEDS ORDERED: FUROSEMIDE20 M1 PO (12:22)
[2021-09-20] MEDS ORDERED: CEFTRIAXONE2 GM IV (12:22)
[2021-09-20] MEDS ORDERED: NEURONTIN300 MG PO (12:22)
[2021-09-20] MEDS ORDERED: AMIODARONE HYD200 MG PO (12:22)
[2021-09-20] MEDS ORDERED: Carafate1 GM PO (12:22)
[2021-09-20] MEDS ORDERED: XARE15TA PO (12:22)
[2021-09-20] MEDS ORDERED: K-TAB20 MEQ PO (12:24)
== END 2021-09-20 15:25 | DRG 853 ==
LOC: ED 12:32 → ICCU 16:58 → EDHOLD 16:58 → 4E 16:58 → ICCU 18:52 → 4E 09-19 14:13
PROVIDERS: Internal Medicine; Internal Medicine Critical Care Medicine; Physician Assistant; ADMIT Family Medicine; ATTEND Family Medicine
PROC: 0JB90ZZ Excision of Buttock Subcutaneous Tissue and Fascia, Open Approach (ICD-10-PCS; principal; 2021-09-11)
PROC: 02HV33Z Insertion of Infusion Device into Superior Vena Cava, Percutaneous Approach (ICD-10-PCS; 2021-09-11)
PROC: B548ZZA Ultrasonography of Superior Vena Cava, Guidance (ICD-10-PCS; 2021-09-11)
PROC: 03HY32Z Insertion of Monitoring Device into Upper Artery, Percutaneous Approach (ICD-10-PCS; 2021-09-11)
PROC: 30233N1 Transfusion of Nonautologous Red Blood Cells into Peripheral Vein, Percutaneous Approach (ICD-10-PCS; 2021-09-17)
PROC: 0DB68ZX Excision of Stomach, Via Natural or Artificial Opening Endoscopic, Diagnostic (ICD-10-PCS; 2021-09-17)
DX: A41.9 Sepsis, unspecified organism (principal); E43 Unspecified severe protein-calorie malnutrition; N17.0 Acute kidney failure with tubular necrosis; R65.21 Severe sepsis with septic shock; K25.4 Chronic or unspecified gastric ulcer with hemorrhage; N39.0 Urinary tract infection, site not specified; I48.19 Other persistent atrial fibrillation; Q21.1 Atrial septal defect; D63.8 Anemia in other chronic diseases classified elsewhere; Z20.822 Contact with and (suspected) exposure to COVID-19; R31.9 Hematuria, unspecified; F41.9 Anxiety disorder, unspecified; E03.9 Hypothyroidism, unspecified; R80.9 Proteinuria, unspecified; D75.839 Thrombocytosis, unspecified; F32.9 Major depressive disorder, single episode, unspecified; L89.310 Pressure ulcer of right buttock, unstageable; E66.9 Obesity, unspecified; I95.9 Hypotension, unspecified; D50.0 Iron deficiency anemia secondary to blood loss (chronic); I48.0 Paroxysmal atrial fibrillation; L89.611 Pressure ulcer of right heel, stage 1; Z68.36 Body mass index [BMI] 36.0-36.9, adult; Z88.2 Allergy status to sulfonamides; Z88.8 Allergy status to other drugs, medicaments and biological substances; Z98.891 History of uterine scar from previous surgery; Z90.710 Acquired absence of both cervix and uterus; Z87.891 Personal history of nicotine dependence; Z81.8 Family history of other mental and behavioral disorders; Z82.3 Family history of stroke

== ENCOUNTER 2022-05-05 21:27 | Emergency (ER) | payer MEDICARE, OTHER ==
[~2022-05-05] VITALS: Ht 162.5 cm; Wt 83.5 kg
[~2022-05-05 21:27] MED LIST changes: +ACYCLOVIR IV; +ACYCLOVIR SODI500 MG IV; +AMIODARONE HCL100 M1 PO; +AMIODARONE HYD200 MG PO; +ASPIRIN ADULT L81 M1 PO; +ATORVASTATIN CA40 M1 PO; +BISMATROL262 MG PO; +CALCIUM ACETAT667 MG PO; +CEFTRIAXONE2 GM IJ; +CEFTRIAXONE2 GM IV; +CLARINEX5 MG PO; +CLARITIN10 MG PO; +CLOPIDOGREL75 MG PO; +CYCLOBENZAPRINE10 MG PO; +Carafate1 GM PO; +DOXYCYCLINE HY100 M3 PO; +DOXYCYCLINE MO100 MG PO; +FUROSEMIDE20 M1 PO; +K-TAB20 MEQ PO; +LEVOTHYROXINE112 MCG PO; +Lopressor25 MG PO; +METRONIDAZOLE500 M1 PO; +MIDODRINE HCL5 M1 PO; +NEURONTIN100 MG PO; +NYSTATIN15 GM T; +ONDANSETRON HYDR4 MG PO; +PANTOPRAZOLE SO40 MG PO; +PROTONIX40 MG PO; +Protonix PO; +VALACYCLOVIR500 M1 PO; +VAZALORE81 MG PO; +XARELTO15 M1 PO; +ZOFRAN4 MG PO
[2022-05-05 21:57] LABS: BASO # 0.2 10*3/uL (0.0-0.1); BASO % 1.6 % (0.0-1.0); EOS # 0.4 10*3/uL (0.0-0.4); EOS % 3.3 % (1.0-4.0); HEMATOCRIT 36.3 % (37.0-47.0); LYMPH # 2.3 10*3/uL (1.3-4.4); LYMPH % 19.5 % (27.0-41.0); MEAN CELL VOLUME 95.8 fl (81.0-99.0); MEAN CORPUSCULAR HGB 29.6 pg (27.0-31.0); MEAN CORPUSCULAR HGB CONC 30.9 g/dl (33.0-37.0); MEAN PLATELET VOLUME 8.9 fl (9.6-12.3); MONO # 0.9 10*3/uL (0.1-1.0); MONO % 7.7 % (3.0-9.0); NEUT # 7.8 10*3/uL (2.3-7.9); NEUT % 66.9 % (47.0-73.0); PLATELET COUNT AUTOMATED 581 10*3/uL (130-400); RED BLOOD COUNT 3.79 10*6/uL (4.10-5.10); RED CELL DISTRI WIDTH 14.9 % (0-14.5); WHITE BLOOD COUNT 11.7 10*3/uL (4.8-10.8)
[2022-05-05 22:09] LABS: POTASSIUM 4.1 mmol/L (3.4-5.1); TOTAL PROTEIN 6.5 gm/dL (6.0-8.0)
== END 2022-05-05 22:27 | disposition home or self-care (01) ==
LOC: ED 21:27
PROVIDERS: Nurse Practitioner Family
DX: M62.48 Contracture of muscle, other site (principal); F32.A Depression, unspecified; Z99.2 Dependence on renal dialysis; I10 Essential (primary) hypertension; Z88.2 Allergy status to sulfonamides; Z88.8 Allergy status to other drugs, medicaments and biological substances; Z96.651 Presence of right artificial knee joint; Z90.710 Acquired absence of both cervix and uterus; Z87.891 Personal history of nicotine dependence

== ENCOUNTER 2023-03-16 12:55 | Inpatient (IN) | payer MEDICARE, OTHER ==
[~2023-03-16] VITALS: Ht 162.6 cm; Wt 78.7 kg
[2023-03-16 13:05] VITALS: BP 157/78
[2023-03-16 13:41] LABS: BASO # 0.1 10*3/uL (0.0-0.1); BASO % 0.9 % (0.0-1.0); EOS # 0.4 10*3/uL (0.0-0.4); EOS % 2.8 % (1.0-4.0); HEMATOCRIT 38.5 % (37.0-47.0); LYMPH # 1.4 10*3/uL (1.3-4.4); LYMPH % 10.7 % (27.0-41.0); MEAN CELL VOLUME 105.8 fl (81.0-99.0); MEAN CORPUSCULAR HGB 31.6 pg (27.0-31.0); MEAN CORPUSCULAR HGB CONC 29.9 g/dl (33.0-37.0); MEAN PLATELET VOLUME 9.5 fl (9.6-12.3); MONO # 0.9 10*3/uL (0.1-1.0); MONO % 6.5 % (3.0-9.0); NEUT # 10.5 10*3/uL (2.3-7.9); NEUT % 78.8 % (47.0-73.0); PLATELET COUNT AUTOMATED 365 10*3/uL (130-400); RED BLOOD COUNT 3.64 10*6/uL (4.10-5.10); RED CELL DISTRI WIDTH 13.1 % (0-14.5); WHITE BLOOD COUNT 13.3 10*3/uL (4.8-10.8)
[2023-03-16 13:52] LABS: ACT PARTIAL THROMBO TIME 45.2 SECONDS (20.0-32.1)
[2023-03-16 14:00] LABS: TOTAL PROTEIN 6.9 gm/dL (6.0-8.0)
[2023-03-16 14:04] LABS: POTASSIUM 7.3 mmol/L (3.4-5.1)
[2023-03-16 15:51] VITALS: BP 143/53
[2023-03-16 17:30] VITALS: BP 108/70
[2023-03-16 19:12] LABS: POTASSIUM 6.7 mmol/L (3.4-5.1)
[2023-03-16 21:00] VITALS: BP 140/60
[2023-03-17] VITALS: BP 132/54
[2023-03-17 05:19] LABS: ALKALINE PHOSPHATASE 51 U/L (46-116); BUN 49 mg/dl (9-23); CHLORIDE 101 mmol/L (98-107); FREE T4 1.21 ng/dl (0.89-1.76); SGPT/ALT < 7 U/L (5-49); TOTAL PROTEIN 5.9 gm/dL (6.0-8.0)
[2023-03-17 06:26] LABS: BASO # 0.1 10*3/uL (0.0-0.1); BASO % 0.8 % (0.0-1.0); EOS # 0.2 10*3/uL (0.0-0.4); EOS % 2.3 % (1.0-4.0); HEMATOCRIT 33.2 % (37.0-47.0); LYMPH # 1.5 10*3/uL (1.3-4.4); LYMPH % 14.1 % (27.0-41.0); MEAN CELL VOLUME 103.4 fl (81.0-99.0); MEAN CORPUSCULAR HGB 31.5 pg (27.0-31.0); MEAN CORPUSCULAR HGB CONC 30.4 g/dl (33.0-37.0); MEAN PLATELET VOLUME 9.8 fl (9.6-12.3); MONO # 0.8 10*3/uL (0.1-1.0); MONO % 7.4 % (3.0-9.0); NEUT # 7.9 10*3/uL (2.3-7.9); NEUT % 74.9 % (47.0-73.0); PLATELET COUNT AUTOMATED 302 10*3/uL (130-400); RED BLOOD COUNT 3.21 10*6/uL (4.10-5.10); RED CELL DISTRI WIDTH 13.2 % (0-14.5); WHITE BLOOD COUNT 10.5 10*3/uL (4.8-10.8)
[2023-03-17 06:42] LABS: VITAMIN D, 25-HYDROXY 19.4 ng/mL (30-100)
[2023-03-17 12:00] VITALS: BP 129/59
[2023-03-17 16:00] VITALS: BP 114/58
[2023-03-17 20:00] VITALS: BP 100/34
[2023-03-18] VITALS: BP 116/48
[2023-03-18 04:44] LABS: BASO # 0.1 10*3/uL (0.0-0.1); BASO % 1.1 % (0.0-1.0); EOS # 0.4 10*3/uL (0.0-0.4); HEMATOCRIT 32.9 % (37.0-47.0); LYMPH # 1.8 10*3/uL (1.3-4.4); LYMPH % 19.3 % (27.0-41.0); MEAN CELL VOLUME 103.1 fl (81.0-99.0); MEAN CORPUSCULAR HGB 31.3 pg (27.0-31.0); MEAN CORPUSCULAR HGB CONC 30.4 g/dl (33.0-37.0); MEAN PLATELET VOLUME 9.5 fl (9.6-12.3); MONO % 10.8 % (3.0-9.0); NEUT # 5.8 10*3/uL (2.3-7.9); NEUT % 64.5 % (47.0-73.0); PLATELET COUNT AUTOMATED 267 10*3/uL (130-400); RED BLOOD COUNT 3.19 10*6/uL (4.10-5.10); RED CELL DISTRI WIDTH 13.1 % (0-14.5); WHITE BLOOD COUNT 9.1 10*3/uL (4.8-10.8)
[2023-03-18 05:20] LABS: ALKALINE PHOSPHATASE 46 U/L (46-116); CHLORIDE 101 mmol/L (98-107); POTASSIUM 4.5 mmol/L (3.4-5.1); TOTAL PROTEIN 5.7 gm/dL (6.0-8.0)
[2023-03-18 05:22] LABS: BUN 30 mg/dl (9-23); SGPT/ALT < 7 U/L (5-49)
[2023-03-18 08:00] VITALS: BP 114/50
[2023-03-18 12:00] VITALS: BP 132/49
== END 2023-03-18 16:45 | disposition home health service (06) | DRG 871 ==
LOC: ED 12:55 → EDHOLD 14:56 → 5E 14:56
PROVIDERS: Emergency Medicine; Internal Medicine; Student in an Organized Health Care Education/Training Program; ADMIT Internal Medicine; ATTEND Internal Medicine
PROC: 5A1D70Z Performance of Urinary Filtration, Intermittent, Less than 6 Hours Per Day (ICD-10-PCS; principal; 2023-03-17)
DX: A41.9 Sepsis, unspecified organism (principal); G93.41 Metabolic encephalopathy; J18.9 Pneumonia, unspecified organism; J96.01 Acute respiratory failure with hypoxia; N18.6 End stage renal disease; E87.1 Hypo-osmolality and hyponatremia; I13.2 Hypertensive heart and chronic kidney disease with heart failure and with stage 5 chronic kidney disease, or end stage renal disease; I50.9 Heart failure, unspecified; E87.5 Hyperkalemia; E03.9 Hypothyroidism, unspecified; D53.9 Nutritional anemia, unspecified; F41.9 Anxiety disorder, unspecified; F32.A Depression, unspecified; I48.91 Unspecified atrial fibrillation; K27.9 Peptic ulcer, site unspecified, unspecified as acute or chronic, without hemorrhage or perforation; Z86.73 Personal history of transient ischemic attack (TIA), and cerebral infarction without residual deficits; Z87.891 Personal history of nicotine dependence; Z99.2 Dependence on renal dialysis; Z82.3 Family history of stroke; Z82.0 Family history of epilepsy and other diseases of the nervous system; Z88.2 Allergy status to sulfonamides

== ENCOUNTER → 2024-10-13 | Outpatient (CLI) | payer MEDICARE, OTHER ==
[~2024-10-13] MED LIST changes: +CEPHALEXIN250 MG PO; +DEXAMETHASONE6 MG PO; +NYAMYC15 GM T; +OMEGA 3 FISH O1 EACH PO; +Ondansetron4 MG PO; +PEPTO BISMOL C262 MG PO; +Rocaltrol0.25 MCG PO; +SEVELAMER CARB2.4 GM PO; +SEVELAMER HCL800 MG PO; +TOPROL XL25 MG PO; +VENLAFAXINE37.5 M1 PO
== END | disposition home or self-care (01) ==
LOC: CARD 08-15 11:30
PROVIDERS: ATTEND Internal Medicine Cardiovascular Disease
DX: I34.0 Nonrheumatic mitral (valve) insufficiency (principal); I48.0 Paroxysmal atrial fibrillation

== ENCOUNTER 2025-01-19 11:44 | Emergency (ER) | payer MEDICARE, OTHER ==
[~2025-01-19] VITALS: Wt 93.4 kg
[~2025-01-19 11:44] MED LIST changes: +AUGMENTIN 500500 M1 PO; +DIGOXIN125 MCG PO; +LOPRESSOR25 MG PO
[2025-01-19 13:04] LABS: BASO # 0.1 10*3/uL (0.0-0.1); BASO % 0.9 % (0.0-1.0); EOS # 0.3 10*3/uL (0.0-0.4); EOS % 3.3 % (1.0-4.0); MEAN CELL VOLUME 103.0 fl (81.0-99.0); MEAN CORPUSCULAR HGB 31.5 pg (27.0-31.0); MEAN PLATELET VOLUME 8.9 fl (9.6-12.3); MONO # 0.9 10*3/uL (0.1-1.0); MONO % 9.2 % (3.0-9.0); NEUT # 6.8 10*3/uL (2.3-7.9); NEUT % 67.0 % (47.0-73.0); NUCLEATED RED BLOOD CELL 0.0 % (0.0-0.0); NUCLEATED RED BLOOD CELL 0.0 10*3/uL (0.0-0.0); PLATELET COUNT AUTOMATED 374 10*3/uL (130-400); RED CELL DISTRI WIDTH 17.2 % (0-14.5)
[2025-01-19 13:29] LABS: BUN 55.0 mg/dl (9-23)
== END 2025-01-19 19:20 | disposition short-term general hospital (02) ==
LOC: ED 11:44
PROVIDERS: Student in an Organized Health Care Education/Training Program
DX: T82.868A Thrombosis due to vascular prosthetic devices, implants and grafts, initial encounter (principal); Z87.891 Personal history of nicotine dependence; Z90.710 Acquired absence of both cervix and uterus; Z98.890 Other specified postprocedural states; Z90.49 Acquired absence of other specified parts of digestive tract; Z88.2 Allergy status to sulfonamides; Z79.899 Other long term (current) drug therapy; Z79.82 Long term (current) use of aspirin; Y84.8 Other medical procedures as the cause of abnormal reaction of the patient, or of later complication, without mention of misadventure at the time of the procedure; Y92.89 Other specified places as the place of occurrence of the external cause